=== PATIENT | female | born 2005 | race Caucasian/White ===

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

== ENCOUNTER 2024-06-17 08:43 | Outpatient (CLI) | payer OTHER, SELFPAY ==
--- NOTE | 2024-06-17 08:45 | CRLHL7_ITS ---
For Patients: As a result of the Century Cures Act, medical imaging exams and procedure reports are released immediately into your electronic medical record. You may view this report before your referring provider. If you have questions, please contact your health care provider. INDICATION: dysmenorrhea COMPARISON: none TECHNIQUE: 2D reyes scale and color Doppler images were acquired of the pelvis using a transabdominal and transvaginal approach. FINDINGS: Sonographic images demonstrate a normal size and smooth outer contour of the uterus. Uterus measures 7.0 cm in length by 3.1 cm in AP diameter by 4.2 cm in transverse dimension. The myometrium has a normal uniform echotexture. The endometrial lining appears normal and measures 3.1 mm in composite thickness. Normal position of the IUD within the endometrial canal. The right ovary measures 4.5 x 2.4 x 2.7 cm in size and the left ovary measures 3.5 x 1.7 x 2.7 cm. The ovaries demonstrate normal arterial and venous blood flow on color Doppler analysis. There are no suspicious fluid collections within the cul-de-sac. Small cyst within the right ovary measures 2 cm. IMPRESSION: Normal position of the IUD within the endometrial canal. Endometrial thickness 3.1 millimeters. No endometrial fluid. No uterine fibroid. Dictated by Zeus Klein MD @ 06/17/2024 9:36:46 AM (Electronically Signed)
== END 2024-06-17 08:44 | disposition home or self-care (01) ==
LOC: US 08:44
PROVIDERS: PCP Family Medicine; Visit Provider Obstetrics & Gynecology
DX: N94.6 Dysmenorrhea, unspecified (principal); R93.89 Abnormal findings on diagnostic imaging of other specified body structures
CPT/HCPCS: 76830; 76856; 93976

== ENCOUNTER 2024-11-22 11:15 | Outpatient (CLI) | payer BC, SELFPAY | END 2024-11-22 11:16 | disposition home or self-care (01) | PROVIDERS: PCP Family Medicine; Visit Provider Family Medicine | DX: Z11.3 Encounter for screening for infections with a predominantly sexual mode of transmission (principal) | CPT/HCPCS: 87491; 87591 ==